=== PATIENT | male | born 1955 | race Caucasian/White ===

== ENCOUNTER → 2019-03-28 07:55 | Outpatient (CLI) | payer BC, SELFPAY ==
[2019-03-28 10:26] LABS: Anion Gap 5 (5-15); BUN 17 mg/dL (7-18); BUN/Creat Ratio 13.6 RATIO (10-20); Calcium,Total 8.8 mg/dL (8.5-10.1); Chloride 103 mmol/L (98-107); Cholesterol 212 mg/dL (200); Creatinine, Serum 1.25 mg/dL (0.70-1.30); EST Glomerular Filtration Rate 62 mL/min (>60); Est Glom Filt Rate - Afr Amer 75 mL/min (>60); Glucose 87 mg/dL (74-106); High Density Lipoprotein 72 mg/dL; PSA,Total - Annual Screen 7.01 ng/mL (0.00-4.00); Potassium 4.2 mmol/L (3.5-5.1); Sodium Level 138 mmol/L (136-145); Thyroid Stim Hormone (TSH) 1.35 uIU/mL (0.358-3.74); Triglycerides 74 mg/dL; Very Low Density Lipoprotein 15 mg/dL (5-40)
[2019-03-28 14:19] LABS: Vitamin D,25 Hydroxy 19.6 ng/mL (29.95-100.01)
== END ==
PROVIDERS: Family Provider Family Medicine; PCP Family Medicine; Referring Provider Family Medicine; Visit Provider Family Medicine
DX: Z00.00 Encounter for general adult medical examination without abnormal findings (principal); E03.9 Hypothyroidism, unspecified
CPT/HCPCS: 36415; 80048; 80061; 82306; 84153; 84443; G0103

== ENCOUNTER → 2019-06-13 08:20 | Outpatient (CLI) | payer BC, SELFPAY | PROVIDERS: Family Provider Family Medicine; PCP Family Medicine; Referring Provider Urology; Visit Provider Urology | DX: R97.20 Elevated prostate specific antigen [PSA] (principal) | CPT/HCPCS: 36415; 84153 ==

== ENCOUNTER 2019-06-27 08:57 | Emergency (ER) | payer BC, SELFPAY ==
[2019-06-27 08:58] VITALS: BP 95/60; PULSE 61; RESP 23; TEMP 36.5; O2SAT 100; BMI 23.6
--- NOTE | 2019-06-27 09:13 | EKG12_ITS ---
Test Reason : Blood Pressure : / mmHG Vent. Rate : 053 BPM Atrial Rate : 053 BPM P-R Int : 180 ms QRS Dur : 090 ms QT Int : 480 ms P-R-T Axes : 073 066 067 degrees QTc Int : 450 ms Sinus bradycardia Otherwise normal ECG Confirmed by ANA CARDOZO, ETHAN ([id number]), editor news ANYA EDMOND ([id number]) on 07/01/2019 1:10:24 PM Referred By: RONI Confirmed By:ETHAN PEREZ MD
--- NOTE | 2019-06-27 09:19 | NURSING ---
NO OLD EKGS
[2019-06-27 09:24] LABS: Absolute Lymphocyte Count 2.13 X10^3/uL (0.83-4.51); Absolute Neutrophil Count 3.1 X10^3/uL (2.0-7.7); Basophil# 0.04 X10^3/uL; Basophil% 0.7 % (0-1); Eosinophil# 0.07 X10^3/uL; Eosinophils% 1.1 % (0-5); Hematocrit 39.6 % (40-54); Hemoglobin 14.1 g/dL (13.0-16.5); Lymphocyte # 2.13 X10^3/ul (4.0); Mean Corp Hgb Conc 35.6 g/dL (32-36); Mean Corpuscular Hgb 32.7 pg (27.0-32.0); Mean Corpuscular Volume 91.9 fL (80-94); Mean Platelet Vol. 11.5 fl (6.2-12.0); Monocyte# 0.74 X10^3/uL; Monocyte% 12.2 % (0-10); NRBC Flagged by Analyzer 0 % (0-5); Neutrophil # 3.09 X10^3/uL (2.7-7.7); Neutrophil % 50.7 % (47-70); Platelet Count 197 K/mm3 (150-450); RBC Distribution Width CV 11.9 % (11.6-14.6); RBC Distribution Width SD 40.3 fl (35.1-43.9); Red Blood Count 4.31 M/mm3 (4.6-6.2); White Blood Count 6.1 K/mm3 (4.4-11.0)
--- NOTE | 2019-06-27 09:24 | ED.VIS.GI ---
History of Present Illness Chief Complaint: Nausea/Vomiting Informant: Patient, Family - Abdominal Pain/Flank Pain Onset: Today Narrative: Patient indicates she is very healthy with really no past history indicates that a prostate biopsy today here at the hospital that was uncomplicated he did not have general anesthesia rather local he reports the procedure causing be nauseated he was able to go home he went home he sat down in a chair he felt more nauseated and per the he passed out for a few seconds, he indicates he had no premonitory symptoms he had no fever cough head neck chest or abdominal pain just an overwhelming sense of nausea. He does not believe he is voided since he had the procedure he has history of neurogenic syncope but has not had an episode recently, he has no history of WA PE or DVT he denies any chest or abdominal pain or any pain whatsoever other than report that his rectal area feels irritated no bleeding no other complaints Past Medical History - Allergies and Home Meds Allergies/Adverse Reactions: Allergies No Known Allergies Allergy (Verified 06/27/19 08:57) Primary Care Physician: Gene Avila MD [Primary Care Provider] - Past Medical History: - - None and as above recent prostate biopsy today Smoking Status: Never smoker Review of Systems General: Denies: Chills, Fever, Sweats Eyes: Denies: Visual changes - bilaterally, Diplopia ENT: Denies: Rhinorrhea, Sore throat Cardiovascular: Denies: Chest pain, Palpitations Respiratory: Denies: Dyspnea, Cough, Dyspnea on exertion Gastrointestinal: Denies: Abdominal pain, Nausea, Vomiting, Diarrhea, Melena, Hematochezia Genitourinary: Denies: Dysuria, Hematuria, Frequency Musculoskeletal: Denies: Back pain, Extremity Pain Skin: Denies: Rash, Wounds Neurological: Denies: Headache, Weakness, Numbness Physical Exam Vital Signs/Narrative: Vital Signs Temp Pulse Resp BP Pulse Ox 06/27/19 08:58 97.7 F L 61 23 H 95/60 100 General: Well nourished, Well developed, No Acute Distress Head: Normocephalic, Atraumatic Eyes: Perrl, EOMI ENT: Moist mucous membranes, No rhinorrhea Neck: Supple, Nontender Cardiovascular: Regular rate, Regular rhythm, No murmurs Respiratory: No distress, CTA bilaterally, Chest nontender Abdomen: Soft, Nontender, Nondistended, Normal bowel sounds Back: Nontender, Normal Inspection Extremities: Nontender, No edema Skin: Normal color, No rash Neurological: Alert, Oriented x3, Cranial nerves II-XII grossly intact, Normal Strength, Normal Sensation Psychological: Normal affect, Normal Mood Diagnostic/Tx/Re-eval - Medical Decision Making In no distress resting company the bed his blood pressure is about 100/60 he has no complaints right now other than some very mild nausea so the nausea itself is improved with no specific therapy his head neck chest are unremarkable the abdomen soft nontender is moving all 4 extremities this time screening labs are obtained IV fluids observation further management EKG shows a sinus rhythm rate of about 53 intervals are normal no acute injury pattern appreciated, all the screening labs are generally unremarkable see those reports except UA shows red cells white cells urine culture sent he received IV fluids he is awake and alert he has no other symptoms he is been feeling fine since he has been here I spoke with Dr. gage urology who agreed the patient be discharged home there is no indication for antibiotics at this time per discussion with urology, they will check the urine culture patient will force fluids rest and return for change in symptoms otherwise follow-up with his outpatient providers he is comfortable as his with discharge Home stable Final impression Nausea, possible syncope, prostate biopsy today ED Disposition - Plan for ED Patient: Diagnosis: Syncope, History of prostate biopsy Instructions: SYNCOPE, Unk Cause Referrals: Gene Avila MD [Primary Care Provider] - Additional Instructions: Rest plenty of fluids follow-up with your urologist outpatient providers return for change in symptoms
[2019-06-27 09:38] LABS: AST(SGOT) 21 U/L (15-37); Alanine Aminotransfer ALT/SGPT 29 U/L (16-61); Albumin, Serum 3.5 g/dL (3.2-5.0); Alkaline Phosphatase 46 U/L (45-117); Anion Gap 14 (5-15); BUN 19 mg/dL (7-18); BUN/Creat Ratio 13.3 RATIO (10-20); Bilirubin, Direct 0.14 mg/dL (0.00-0.30); Calcium,Total 8.5 mg/dL (8.5-10.1); Chloride 104 mmol/L (98-107); Creatinine, Serum 1.43 mg/dL (0.70-1.30); EST Glomerular Filtration Rate 53 mL/min (>60); Est Glom Filt Rate - Afr Amer 64 mL/min (>60); Estimated Creatinine Clearance 58.03 ml/min; Globulin 3.2 g/dL (2.2-4.2); Glucose 126 mg/dL (74-106); Lipase 141 U/L (73-393); Potassium 3.1 mmol/L (3.5-5.1); Protein, Total 6.7 g/dL (6.4-8.2); Sodium Level 142 mmol/L (136-145)
[2019-06-27] MEDS: 0.9% Normal Saline 1,000 ML 999 ML IV ×2 (09:38)
[2019-06-27] MEDS: Ondansetron 4 MG/2 ML Vial IV (09:38)
--- NOTE | 2019-06-27 09:50 | ED.RN ---
PT REFUSING MORPHINE AT THIS TIME. DR AWARE. PT AWARE OF NEED FOR URINE SAMPLE. ICE CHIPS GIVEN PER DR INSTRUCTION.
[2019-06-27 10:23] LABS: Bacteria 0 SEEN /hpf (None Seen); Mucous, Urine 0 SEEN /hpf (<or=2+)
[2019-06-27 10:26] LABS: Color, Urine Red (Yellow); Glucose, Dipstick Normal (Normal); Ketone-Dipstick 15 mg/dl (Negative); Leukocyte Esterase-Dipstick 100 /ul (Negative); Nitrite-Dipstick Negative (Negative); Occult Blood-Urine 250 /ul (Negative); Protein-Dipstick 100 mg/dl (Negative); Urine Bilirubin Dipstick Negative (Negative); Urine Clarity Cloudy (Clear); Urine Urobilinogen 1 mg/dl (Normal)
[2019-06-27 10:41] LABS: Red Blood Cells-Urine > 100 SEEN /hpf (0-5); Squamous Epithelial Cells - UA 0 SEEN /hpf (0-5)
[2019-06-27 10:42] LABS: White Blood Cells 50-100 SEEN /hpf (0-5)
[2019-06-27 11:05] VITALS: BP 100/75; PULSE 63; RESP 15; O2SAT 98
[2019-06-27 11:28] VITALS: BP 107/75; PULSE 63; RESP 16; O2SAT 97
== END 2019-06-27 11:29 | disposition home or self-care (01) ==
LOC: ED 09:24
PROVIDERS: Emergency Provider Emergency Medicine; Family Provider Family Medicine; PCP Family Medicine
DX: R55 Syncope and collapse (principal); Z98.890 Other specified postprocedural states
CPT/HCPCS: 80048; 80076; 81001; 83690; 84484; 85025; 87086; 93005; 99285; J7030; A4216; J2405

== ENCOUNTER → 2019-06-27 16:15 | Outpatient (CLI) | payer BC, SELFPAY ==
--- NOTE | 2019-06-27 08:00 | PROSBIL_PTH ---
PATIENT: KURTIS SCOTT LOC: [facility] U#:[id number] AGE/SX: 70/M ROOM: RE06/27/[address]: Dr. Aquiles Alejandre MD : 1955 BED: DIS: SPEC #: [id number] RECD: 06/27/19 16:04 STATUS: DRU ZAY #: [id number] JEROMY: 06/27/19 08:[address]: Aquiles Alejandre DEPT: SURGICAL PATHOLOGY RECD BY: Kyle Beasley ENTERED: 06/28/19 10:47 SP TYPE: PROST BX AREN DR: Dr. Gene Avila MD Tissues: A - PROSTATE RIGHT B - PROSTATE RIGHT C - PROSTATE RIGHT D - PROSTATE LEFT E - PROSTATE LEFT F - PROSTATE LEFT Procedures: PROSTATE BX HEADER OPERATION: Prostate biopsy PRE-OP DIAGNOSIS: R97.20 TISSUE SUBMITTED: A - Right apex, B - Right mid, C - Right base, D - Left apex, E - Left mid, F - Left base MICROSCOPIC DIAGNOSIS A. Right prostate, apex, core biopsy: Mild chronic inflammation, focal acute inflammation and glandular atrophy. B. Right prostate, mid, core biopsy: Mild chronic inflammation, focal acute inflammation and glandular atrophy. C. Right prostate, base, core biopsy: Mild chronic inflammation, focal acute inflammation and glandular atrophy. D. Left prostate, apex, core biopsy: Mild chronic inflammation and focal glandular atrophy. E. Left prostate, mid, core biopsy: Mild chronic inflammation and focal glandular atrophy. F. Left prostate, base, core biopsy: Mild chronic inflammation, focal acute inflammation and glandular atrophy. AM:soila 07/01/19 MICROSCOPIC DESCRIPTION Slides are reviewed. GROSS DESCRIPTION A - Received is one container designated prostate, right apex. The specimen consists of two elongated fragments of light godoy-white soft tissue each measuring 1 cm in length and 0.1 cm in diameter. The specimen is totally submitted in one cassette. B - Received is one container designated prostate, right mid. The specimen consists of two elongated fragments of light godoy-white soft tissue each measuring 1 cm in length and 0.1 cm in diameter. The specimen is totally submitted in one cassette. C - Received is one container designated prostate, right base. The specimen consists of two elongated fragments of light godoy-white soft tissue each measuring 1 cm in length and 0.1 cm in diameter. The specimen is totally submitted in one cassette. D - Received is one container designated prostate, left apex. The specimen consists of two elongated fragments of light godoy-white soft tissue each measuring 0.8 cm in length and 0.1 cm in diameter. The specimen is totally submitted in one cassette. E - Received is one container designated prostate, left mid. The specimen consists of two elongated fragments of light godoy-white soft tissue each measuring 1 cm in length and 0.1 cm in diameter. The specimen is totally submitted in one cassette. F - Received is one container designated prostate, left base. The specimen consists of two elongated fragments of light godoy-white soft tissue each measuring 1 cm in length and 0.1 cm in diameter. The specimen is totally submitted in one cassette. / AM:soila 06/28/19 TC:2 CPT: 90169 x6
[2019-06-27 08:58] VITALS: BMI 23.6
== END ==
PROVIDERS: Family Provider Family Medicine; PCP Family Medicine; Referring Provider Urology; Visit Provider Urology
DX: N41.1 Chronic prostatitis (principal); N42.89 Other specified disorders of prostate
CPT/HCPCS: 88305; G0416

== ENCOUNTER → 2020-08-01 08:29 | Outpatient (CLI) | payer BC, SELFPAY ==
[2020-08-01 09:53] LABS: Anion Gap 3 (5-15); BUN 17 mg/dL (7-18); BUN/Creat Ratio 13.8 RATIO (10-20); Calcium,Total 8.6 mg/dL (8.5-10.1); Chloride 105 mmol/L (98-107); Cholesterol 202 mg/dL (200); Creatinine, Serum 1.23 mg/dL (0.70-1.30); EST Glomerular Filtration Rate 63 mL/min (>60); Est Glom Filt Rate - Afr Amer 76 mL/min (>60); Free T3 2.2 pg/mL (2.18-3.98); Glucose 83 mg/dL (74-106); High Density Lipoprotein 66 mg/dL; PSA,Total - Annual Screen 5.06 ng/mL (0.00-4.00); Sodium Level 141 mmol/L (136-145); T4 Free Direct 0.95 ng/dL (0.76-1.46); Thyroid Stim Hormone (TSH) 1.31 uIU/mL (0.358-3.74); Triglycerides 94 mg/dL; Very Low Density Lipoprotein 19 mg/dL (5-40)
== END ==
PROVIDERS: PCP Family Medicine; Referring Provider Family Medicine; Visit Provider Family Medicine
DX: Z00.00 Encounter for general adult medical examination without abnormal findings (principal); E03.9 Hypothyroidism, unspecified
CPT/HCPCS: 36415; 80048; 80061; 84153; 84439; 84443; 84481; G0103

== ENCOUNTER → 2021-08-16 08:48 | Outpatient (CLI) | payer MEDICARE, SELFPAY ==
[2021-08-16 10:36] LABS: Anion Gap 4 (5-15); BUN 15 mg/dL (7-18); BUN/Creat Ratio 13.6 RATIO (10-20); Calcium,Total 8.7 mg/dL (8.5-10.1); Chloride 106 mmol/L (98-107); Cholesterol 193 mg/dL (200); EST Glomerular Filtration Rate 71 mL/min (>60); Est Glom Filt Rate - Afr Amer 86 mL/min (>60); Free T3 2.7 pg/mL (2.18-3.98); Glucose 82 mg/dL (74-106); High Density Lipoprotein 65 mg/dL; PSA,Total- Diagnostic 5.78 ng/mL (0.0-4.0); Potassium 3.9 mmol/L (3.5-5.1); Sodium Level 139 mmol/L (136-145); T4 Free Direct 1.09 ng/dL (0.76-1.46); Triglycerides 105 mg/dL; Very Low Density Lipoprotein 21 mg/dL (5-40)
== END ==
PROVIDERS: PCP Family Medicine; Visit Provider Family Medicine
DX: Z00.00 Encounter for general adult medical examination without abnormal findings (principal); E03.9 Hypothyroidism, unspecified; N40.0 Benign prostatic hyperplasia without lower urinary tract symptoms
CPT/HCPCS: 36415; 80048; 80061; 84153; 84439; 84443; 84481

== ENCOUNTER → 2022-04-04 | Outpatient (CLI) | payer MEDICARE, SELFPAY ==
--- NOTE | 2022-04-04 12:36 | RAD_ITS ---
STUDY: X-RAY - LEFT ELBOW REASON FOR EXAM: Male, 66 years old. Injury. Pain. TECHNIQUE: 3 view(s) of the elbow. COMPARISON: None. FINDINGS: Normal visualized humerus, radius and ulna. Mild arthrosis of the radiocapitellar and ulnotrochlear articulations. The soft tissue structures are unremarkable. RAD/Elbow min 3 Views IMPRESSION: Mild arthrosis. No acute abnormality. Electronically Signed: Manjinder Rivera MD at 9:44 EDT ,
== END | disposition home or self-care (01) ==
LOC: MTRAD 12:34
PROVIDERS: PCP Family Medicine; Referring Provider Family Medicine; Visit Provider Family Medicine
DX: S59.902A Unspecified injury of left elbow, initial encounter (principal)
CPT/HCPCS: 73080

== ENCOUNTER → 2022-10-03 | Outpatient (CLI) | payer MEDICARE, SELFPAY ==
[2022-10-03 10:42] LABS: Anion Gap 3 (5-15); BUN 17 mg/dL (7-18); Calcium,Total 8.9 mg/dL (8.5-10.1); Chloride 106 mmol/L (98-107); Creatinine, Serum 1.13 mg/dL (0.70-1.30); EST Glomerular Filtration Rate 69 mL/min (>60); Est Glom Filt Rate - Afr Amer 83 mL/min (>60); Glucose 84 mg/dL (74-106); PSA,Total- Diagnostic 5.11 ng/mL (0.0-4.0); Potassium 3.8 mmol/L (3.5-5.1); Sodium Level 139 mmol/L (136-145)
== END | disposition home or self-care (01) ==
PROVIDERS: PCP Family Medicine; Visit Provider Family Medicine
DX: Z00.00 Encounter for general adult medical examination without abnormal findings (principal); N40.0 Benign prostatic hyperplasia without lower urinary tract symptoms
CPT/HCPCS: 36415; 80048; 84153

== ENCOUNTER 2023-03-15 08:54 | Day surgery (SDC) | payer MEDICARE, SELFPAY ==
[2023-03-15] VITALS (7 sets, daily range): BP systolic 96–115; BP diastolic 47–81; PULSE 59–72; RESP 16; TEMP 36.2–36.6; O2SAT 96–100; BMI 22.1
--- NOTE | 2023-03-15 09:10 | HP.PCM_ITS ---
[facility] - General General Date of Admission: 03/15/23 Date of Service: 03/15/23 Chief Complaint: Screening colonoscopy HPI Narrative KURTIS SCOTT, is a 67 M who presents today for screening colonoscopy. He has no significant past medical history except for hypothyroidism. He also has a history of diverticular disease that was discovered back on colonoscopy 2011. He has not had a colonoscopy since. Has not had any problems with his bowels. He does not have abdominal pain. He does not have any nausea, vomiting or diarrhea. Overall is in very good health. FORMERLY [facility], 1928–1983 Medical History (Updated 03/10/23 @ 08:57 by Dinora Mcneal) Alcohol use Benign prostatic hyperplasia without lower urinary tract symptoms Diverticulosis GERD (gastroesophageal reflux disease) Hoarseness Hypothyroid Non-smoker Premalignant lesion of gingiva Syncope Home Medications levothyroxine 75 mcg tablet 75 mcg PO DAILY 06/27/19 [History Last Taken 06/27/19] cholecalciferol (vitamin D3) 50 mcg (2,000 unit) capsule 50 mcg PO DAILY 01/04/23 [History Last Taken Unknown] multivitamin 1 tab PO DAILY 01/04/23 [History Last Taken Unknown] vitamin B complex-folic acid 0.4 mg tablet (Super B Maxi Complex) 1 tab PO DAILY 01/04/23 [History Last Taken Unknown] Allergy/AdvReac Type Severity Reaction Status Date / Time ciprofloxacin Allergy Nausea/Vom/ Verified 03/10/23 08:46 Diarrhea Family History (Updated 01/04/23 @ 10:20 by Franny Jensen) Grandmother Diabetes Mother Hypertension Surgical History (Updated 01/04/23 @ 10:20 by Franny Jensen) History of colonoscopy History of prostate biopsy Social History Smoking Status: Never smoker Physical Exam Const alert General Appearance: cooperative Orientation / Consciousness: oriented to person HEENT hearing grossly normal bilaterally Head and Scalp: normal to inspection Face and Sinus: face symmetric Nose: external nose normal Mouth: oral and palatal mucosa normal Eyes conjunctivae normal General Eye: normal appearance of both eyes Neck full ROM General: normal visual inspection Lymph Lymphatic: no lymphadenopathy noted Chest inspection of chest normal and palpation of chest normal Chest: symmetrical chest wall rise Resp normal respiratory effort Effort and Inspection: able to speak in complete sentences Cardio regular rate GI non-distended Percussion: normal to percussion Rectal Exam: deferred Neuro Speech: speech normal Gait (Neuro): normal gait Assessment & Plan Assessment/Plan (1) Encounter for screening for malignant neoplasm of colon: PLAN: He will undergo screening colonoscopy. He was explained alternatives, risk, benefits including outstanding bleeding, infection, sepsis, perforation, need for emergent urgent . He will have an ASA of 2.
[2023-03-15] MEDS: Lactated Ringers 1,000 ML 15 ML IV (09:35)
--- NOTE | 2023-03-15 10:37 | OP.COLON_ITS ---
Patient Name: Bj Ryder Procedure Date: 03/15/2023 10:01 AM Date of : 1955 Age: 67 Procedure: Colonoscopy Indications: Screening for colorectal malignant neoplasm Providers: Myles Jones DO Referring MD: Myles Jones DO Medicines: Monitored Anesthesia Care Patient Profile: This is a 67 year old male. Refer to note in patient chart for documentation of history and physical. Last Colonoscopy: more than 10 years ago. Complications: No immediate complications. Procedure: Pre-Anesthesia Assessment: - Prior to the procedure, a History and Physical was performed, and patient medications and allergies were reviewed. The patient is competent. The risks and benefits of the procedure and the sedation options and risks were discussed with the patient. All questions were answered and informed consent was obtained. Patient identification and proposed procedure were verified by the physician. Mental Status Examination: normal. Prophylactic Antibiotics: The patient does not require prophylactic antibiotics. Prior Anticoagulants: The patient has taken no previous anticoagulant or antiplatelet agents. ASA Grade Assessment: II - A patient with mild systemic disease. After reviewing the risks and benefits, the patient was deemed in satisfactory condition to undergo the procedure. The anesthesia plan was to use monitored anesthesia care (MAC). Immediately prior to administration of medications, the patient was re-assessed for adequacy to receive sedatives. The heart rate, respiratory rate, oxygen saturations, blood pressure, adequacy of pulmonary ventilation, and response to care were monitored throughout the procedure. The physical status of the patient was re-assessed after the procedure. After I obtained informed consent, the scope was passed under direct vision. Throughout the procedure, the patient's blood pressure, pulse, and oxygen saturations were monitored continuously. The colonoscope was introduced through the anus and advanced to the cecum, identified by appendiceal orifice and ileocecal valve. The colonoscopy was performed without difficulty. The patient tolerated the procedure well. The quality of the bowel preparation was adequate. Scope In: 10:17:05 AM Scope Withdrawal Time 0 hours 8 minutes 0 seconds Scope Out: 10:30:13 AM Total Procedure Duration Time 0 hours 13 minutes 8 seconds Findings: The perianal and digital rectal examinations were normal. A few small-mouthed diverticula were found in the recto-sigmoid colon and sigmoid colon. The exam was otherwise without abnormality on direct and retroflexion views. Impression: - Diverticulosis in the recto-sigmoid colon and in the sigmoid colon. - The examination was otherwise normal on direct and retroflexion views. - No specimens collected. Recommendation: - Discharge patient to home. - Resume previous diet. - Continue present medications. - Repeat colonoscopy in 10 years for screening purposes. Procedure Code(s): --- Professional --- G0121, Colorectal cancer screening; colonoscopy on individual not meeting criteria for high risk CPT copyright 2017 [employer]. All rights reserved. The codes documented in this report are preliminary and upon derrick builder review may be revised to meet current compliance requirements. Myles Jones DO 03/15/2023 10:36:40 AM This report has been signed electronically. Number of Addenda: 0 Note Initiated On: 03/15/2023 10:01 AM
--- NOTE | 2023-03-15 10:37 | OP.CCLET_ITS ---
03/15/2023 Gene Avila MD [address] [place] [address] Re : Colonoscopy procedure for Bj Guzmanamy Dear Dr. Avila This procedure was performed on Wednesday, March 15, 2023. My impressions and recommendations are as follows: Impressions : - Diverticulosis in the recto-sigmoid colon and in the sigmoid colon. - The examination was otherwise normal on direct and retroflexion views. - No specimens collected. Recommendations : - Discharge patient to home. - Resume previous diet. - Continue present medications. - Repeat colonoscopy in 10 years for screening purposes. My findings are described in the full procedure note, which is enclosed. If I can be of further assistance, please feel free to contact me at . Sincerely, Myles Jones, 03/15/2023 10:36:40 AM This report has been signed electronically.
== END 2023-03-15 11:24 | disposition home or self-care (01) ==
LOC: EN 08:59 → AC 09:01
PROVIDERS: PCP Family Medicine; Referring Provider Internal Medicine Gastroenterology; Visit Provider Internal Medicine Gastroenterology
PROC: 0DJD8ZZ Inspection of Lower Intestinal Tract, Via Natural or Artificial Opening Endoscopic (ICD-10-PCS; CPT 45378; principal; 2023-03-15 09:55)
DX: Z12.11 Encounter for screening for malignant neoplasm of colon (principal); K57.30 Diverticulosis of large intestine without perforation or abscess without bleeding; K21.9 Gastro-esophageal reflux disease without esophagitis; E03.9 Hypothyroidism, unspecified
CPT/HCPCS: G0121; J7120; J2405

== ENCOUNTER → 2023-07-07 | Outpatient (CLI) | payer MEDICARE, SELFPAY ==
--- NOTE | 2023-07-07 | LES_PTH ---
PATIENT: KURTIS SCOTT LOC: [facility] U#:[id number] AGE/SX: 68/M ROOM: RE07/07/[address]: Dr. Sukhdev Merrill MD : 1955 BED: DIS: 07/07/2023 SPEC #: [id number] RECD: 07/10/23 09:03 STATUS: DRU ZAY #: [id number] JEROMY: 07/07/23 00:[address]: Sukhdev Merrill DEPT: SURGICAL PATHOLOGY RECD BY: True Dominguez ENTERED: 07/10/23 09:04 SP TYPE: Lesion OTHR DR: Dr. Gene Avila MD Tissues: Skin appendage, NOS Procedures: Special Stain Group I Surgery Specimen Level IV GMS Stain (control) HEADER OPERATION: Right gingival lesion removal PRE-OP DIAGNOSIS: Right gingival lesion TISSUE SUBMITTED: Right gingival lesion MICROSCOPIC DIAGNOSIS Right gingival lesion, biopsy: Mild dermal fibrosis with mild chronic inflammation. No evidence of malignancy. Negative for fungal organisms. See comment. AM:solia 07/11/2023 COMMENT GMS stain with matched control was used in the evaluation of this case. Clinical correlation is suggested. MICROSCOPIC DESCRIPTION Slides are reviewed. GROSS DESCRIPTION Received in fixative is one container labeled with the patient's name and designated right oral gingival biopsy. The specimen consists of one irregular fragment of light godoy soft tissue that measures 0.2 x 0.2 x 0.1 cm. The specimen is totally submitted in one cassette. / AM:soila 07/10/2023 TC:3 CPT: 11976, 20737
== END | disposition home or self-care (01) ==
LOC: LABSPEC 15:20
PROVIDERS: PCP Family Medicine; Referring Provider Otolaryngology; Visit Provider Otolaryngology
DX: K13.21 Leukoplakia of oral mucosa, including tongue (principal)
CPT/HCPCS: 88305; 88312

== ENCOUNTER → 2023-08-21 | Outpatient (CLI) | payer MEDICARE, SELFPAY ==
[2023-08-21 12:49] LABS: Anion Gap 3 (5-15); BUN 14 mg/dL (7-18); BUN/Creat Ratio 12.3 RATIO (10-20); Calcium,Total 9.3 mg/dL (8.5-10.1); Chloride 103 mmol/L (98-107); Cholesterol 206 mg/dL (200); Creatinine, Serum 1.14 mg/dL (0.70-1.30); EST Glomerular Filtration Rate 68 mL/min (>60); Est Glom Filt Rate - Afr Amer 82 mL/min (>60); Glucose 89 mg/dL (74-106); High Density Lipoprotein 78 mg/dL; Sodium Level 139 mmol/L (136-145); T4 Free Direct 1.05 ng/dL (0.76-1.46); Thyroid Stim Hormone (TSH) 3.21 uIU/mL (0.358-3.74); Triglycerides 95 mg/dL; Very Low Density Lipoprotein 19 mg/dL (5-40)
[2023-08-21 15:32] LABS: Free T3 2.9 pg/mL (2.18-3.98)
[2023-08-21 18:37] LABS: T3 Total - Triiodothyronine 1.18 ng/mL (0.6-1.81)
== END | disposition home or self-care (01) ==
PROVIDERS: PCP Family Medicine; Referring Provider Family Medicine; Visit Provider Family Medicine
DX: E78.5 Hyperlipidemia, unspecified (principal); E03.9 Hypothyroidism, unspecified; N40.0 Benign prostatic hyperplasia without lower urinary tract symptoms
CPT/HCPCS: 36415; 80048; 80061; 84439; 84443; 84480; 84481

== ENCOUNTER → 2023-09-22 | Outpatient (CLI) | payer MEDICARE, SELFPAY ==
[2023-09-22 12:22] LABS: PSA,Total- Diagnostic 4.99 ng/mL (0.0-4.0)
== END | disposition home or self-care (01) ==
LOC: MTLAB 09:40
PROVIDERS: PCP Family Medicine; Referring Provider Family Medicine; Visit Provider Family Medicine
DX: N40.0 Benign prostatic hyperplasia without lower urinary tract symptoms (principal)
CPT/HCPCS: 36415; 84153

== ENCOUNTER → 2024-10-15 | Outpatient (CLI) | payer MEDICARE, SELFPAY ==
[2024-10-15 10:09] LABS: T3 Total - Triiodothyronine 0.94 ng/mL (0.6-1.81)
[2024-10-15 10:25] LABS: ALB/GLOB Ratio 1.1 RATIO (0.9-2.4); AST(SGOT) 25 U/L (15-37); Alanine Aminotransfer ALT/SGPT 29 U/L (16-61); Albumin, Serum 3.7 g/dL (3.2-5.0); Alkaline Phosphatase 43 U/L (45-117); Anion Gap 5 (5-15); BUN 18 mg/dL (7-18); BUN/Creat Ratio 15.9 RATIO (10-20); Calcium,Total 9.1 mg/dL (8.5-10.1); Chloride 105 mmol/L (98-107); Cholesterol 204 mg/dL (200); Creatinine, Serum 1.13 mg/dL (0.70-1.30); EST Glomerular Filtration Rate 69 mL/min (>60); Est Glom Filt Rate - Afr Amer 83 mL/min (>60); Globulin 3.5 g/dL (2.2-4.2); Glucose 87 mg/dL (74-106); High Density Lipoprotein 75 mg/dL; PSA,Total - Annual Screen 4.78 ng/mL (0.00-4.00); Potassium 4.3 mmol/L (3.5-5.1); Protein, Total 7.2 g/dL (6.4-8.2); Sodium Level 140 mmol/L (136-145); T4 Free Direct 1.03 ng/dL (0.76-1.46); Triglycerides 95 mg/dL; Very Low Density Lipoprotein 19 mg/dL (5-40)
== END | disposition home or self-care (01) ==
LOC: MTLAB 08:10
PROVIDERS: PCP Family Medicine; Referring Provider Family Medicine; Visit Provider Family Medicine
DX: E78.5 Hyperlipidemia, unspecified (principal); E03.9 Hypothyroidism, unspecified; Z12.5 Encounter for screening for malignant neoplasm of prostate
CPT/HCPCS: 36415; 80053; 80061; 84153; 84439; 84443; 84480; G0103

== ENCOUNTER → 2025-01-03 | Outpatient (CLI) | payer MEDICARE, SELFPAY ==
--- NOTE | 2025-01-03 09:15 | RAD_ITS ---
EXAM: XR Right Knee Complete, 4 or More Views CLINICAL INDICATION: TECHNIQUE: Four or more views of the right knee. COMPARISON: No relevant prior studies available. FINDINGS: BONES/JOINTS: Unremarkable. No acute fracture. No dislocation. SOFT TISSUES: Unremarkable. RAD/Knee 4 or More Views IMPRESSION: No acute fracture. [facility]
== END | disposition home or self-care (01) ==
LOC: MTRAD 09:10
PROVIDERS: PCP Family Medicine; Referring Provider Family Medicine; Visit Provider Family Medicine
DX: M25.561 Pain in right knee (principal)
CPT/HCPCS: 73564

== ENCOUNTER 2025-01-17 08:00 | Outpatient (RCR) | payer MEDICARE, SELFPAY ==
--- NOTE | 2025-01-09 15:59 | HP.PTEVAL ---
Patient's Visit Information Visit Information Visit Information: KURTIS SCOTT is a 69 year old M referred to Physical Therapy by Dr. Gene Avila MD with a diagnosis of R knee pain. Date of Evaluation: 01/09/25 Physical Therapist: Chester Shine, PT, ATC Visit Plan Frequency: 1x/Week Duration: 1 Week Plan: Issue and instruct pt on HEP of core and R knee strengthening Subjective Subjective: Pt reports he has had R knee pain for approximately 3 months. Pt reports his pain had an insidious onset in nature. Pt reports he finally went to the doctor and received x-rays, but doesn't have the results yet. Pt notes his R knee will pop on occasion, but never gives out or locks up. Pt reports all of his pain is on the medial aspect of his R knee. Pt reports he has been on Meloxicam for the past several days and his knee is starting to feel better. Pt notes he has sleep difficulty at this time secondary to pain. Pt reports no PMHx of R knee pain in the past. 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 Pt is still able to perform all his work duties, but notes he was in a lot of pain. 0/10 pain at rest, 9/10 pain at worst (when he kicked his leg sideways) Pain R knee pain: Pain Intensity (Out of 10): 0 Pain Intensity Range: 9 Objective Objective: Neuro: B LE sensation is WNL to light touch Palpation: Pt is sore throughout the medial joint line. No obvious deformity present. Mild crepitus present with AROM ROM: L knee 0-142 degrees ; R knee 0-130 degrees MMT: L knee flex= 45, ext= 48; R knee flex= 50, ext= 42 #F Special tests: Pos apley compression test Goals Goal 1:: I with HEP Goal Time Frame: 1 Week Goal 2:: Decrease R knee pain x 50% to aid with sleep Goal Time Frame: 4-6 Weeks Rehabilitation Potential Physical Therapy Diagnosis: Pt has R knee pain and weakness secondary to degenerative changes Rehabilitation Potential: Good Anticipated Interventions Patient/Client Instruction: Educate patient on: Condition and Plan of Care For the Purpose of:: To improve self management Therapeutic Exercise to Include: Strength training, Flexibilty training, Active ROM and Dynamic Lumbar Stabilization For the Purpose of:: To decrease pain and To improve muscle performance and motor function Text: Thank you for the opportunity to evaluate your patient. For Medicare and Medicare HMO plans, please review the plan of care and approve it. It will need to be FAXED BACK to us at [phone] for Medicare purposes. For Medicare only, by signing this I certify the plan of care. Please let me know if there are questions or concerns regarding this plan of care. Physician Signature: Date:
--- NOTE | 2025-04-22 15:58 | HP.PT.NRP ---
Patient Information Patient Information: KURTIS SCOTT was seen in my office for initial evaluation on 01/09/25. The following Plan of Care was established for this patient: POC Established Initial Frequency: 1x/Week Initial Duration: 1 Week Anticipated Interventions Patient/Client Instruction: Educate patient on: Condition and Plan of Care For the Purpose of:: To improve self management Therapeutic Exercise to Include: Strength training, Flexibilty training, Active ROM and Dynamic Lumbar Stabilization For the Purpose of:: To decrease pain and To improve muscle performance and motor function Last Seen Last Seen: This patient was last seen in our office . Pertinent comments regarding their Physical therapy will appear below: Pt has not returned to [facility] is greater than 30 days and is discharged at this time. At this point I will be discontinuing this patient from physical therapy. I would be happy to see this patient again in the future if found appropriate by the physician. Thank you! Chester Shine, PT, ATC
== END 2025-01-17 19:00 | disposition home or self-care (01) ==
LOC: PT 08:00
PROVIDERS: PCP Family Medicine; Referring Provider Family Medicine; Visit Provider Family Medicine
DX: M25.561 Pain in right knee (principal)
CPT/HCPCS: 97110; 97161

== ENCOUNTER → 2025-10-22 | Outpatient (CLI) | payer MEDICARE, SELFPAY ==
[2025-10-22 09:51] LABS: Anion Gap 11 (5-15); BUN 15 mg/dL (4-19); BUN/Creat Ratio 13.6 RATIO (10-20); Calcium,Total 8.9 mg/dL (7.6-11.0); Carbon Dioxide 26.9 mmol/L (21.0-32.0); Chloride 104 mmol/L (98-108); Glucose 93 mg/dL (70-99); PSA,Total - Annual Screen 4.35 ng/mL (0.02-4.00); Potassium 4.3 mmol/L (3.3-5.1); T3 Total - Triiodothyronine 0.97 ng/mL (0.80-2.00)
[2025-10-22 13:03] LABS: Cholesterol 218 mg/dL (<=200); Low Density Lipoprotein Calc. 130 mg/dL; Triglycerides 89 mg/dL; Very Low Density Lipoprotein 18 mg/dL (5-40); cholesterol:hdl ratio screen 3.02
== END | disposition home or self-care (01) ==
LOC: LAB 08:46
PROVIDERS: PCP Family Medicine; Referring Provider Family Medicine; Visit Provider Family Medicine
DX: E03.9 Hypothyroidism, unspecified (principal); E78.5 Hyperlipidemia, unspecified; Z12.5 Encounter for screening for malignant neoplasm of prostate
CPT/HCPCS: 36415; 80048; 80061; 84153; 84439; 84443; 84480; G0103